=== PATIENT | male | born 1990 | race African-American/Black ===

== ENCOUNTER 2019-11-14 09:56 | Emergency (ER) | payer SELFPAY ==
[~2019-11-14] VITALS: Ht 182.9 cm; Wt 72.6 kg
[2019-11-14] MEDS ORDERED: MAG HYDROX/AL HYDROX/SIMETH 30 ML UDC ONE (10:13)
[2019-11-14] MEDS ORDERED: LIDOCAINE VISCOUS 2% UD 15 ML UDC ONE (10:13)
[2019-11-14] MEDS ORDERED: FAMOTIDINE (20 MG) 20 MG TABLET ONE (10:14)
[2019-11-14] MEDS: LIDOCAINE VISCOUS 2% UD 15 ML UDC MM ONE (10:20)
[2019-11-14] MEDS: MAG HYDROX/AL HYDROX/SIMETH 30 ML UDC PO ONE (10:20)
[2019-11-14] MEDS: FAMOTIDINE (20 MG) 20 MG TABLET PO ONE (10:20)
--- NOTE | 2019-11-14 10:21 | NUR ---
BIBS FROM HOME TO ER BED 4. AAOX4. NOT IN RESP DISTRESS. AMBULATORY. CAME IN FOR ABDOMINAL PAIN ON THE EPIGASTRIC AREA WHICH IS INTERMITENT IN NATURE. PT REPORTS THAT ITS HAS BEEN GOING ON FOR THE PAST 2 MONTH W/ ASSOCIATED INTERMITENT DIARRHEA. PT DESCRIBE THE SENSATION OF THE PAIN BURNING AND AGGREVATED BY SPICY AND ACIDIC FOOD. MD WAS AT THE BEDSIDE FOR EVAL. ORDERS RECEIVED NOTED AND CARRIED OUT. PT WAS MEDICATED ORDERED
[2019-11-14 10:55] LABS: BASOPHILS % (AUTO) 0.9 % (0.0-2.0); EOSINOPHILS % (AUTO) 0.7 % (0.0-6.0); HEMATOCRIT 43 % (39-51); HEMOGLOBIN 14.3 g/dL (13.5-17.5); LYMPHOCYTES # (AUTO) 1.2 /CMM (0.8-4.8); LYMPHOCYTES % (AUTO) 36.3 % (20.0-44.0); MEAN CORPUSCULAR HGB CONC 33 g/dl (31.0-36.0); MEAN CORPUSCULAR VOLUME 88 fL (80-96); MONOCYTES # (AUTO) 0.3 /CMM (0.1-1.30); MONOCYTES % (AUTO) 8.6 % (2.0-12.0); NEUTROPHILS # (AUTO) 1.7 /CMM (1.8-8.9); NEUTROPHILS % (AUTO) 53.5 % (43.0-81.0); PLATELET COUNT (AUTO) 124 /CMM (150-450); RED BLOOD CELL COUNT(AUTO) 4.94 MIL/uL (4.5-6.0); WHITE BLOOD COUNT (AUTO) 3.2 K/uL (4.3-11.0)
--- NOTE | 2019-11-14 11:01 | NUR ---
FOLOWED UP WITH LAB REGARDING LAB RESULTS
[2019-11-14 11:04] LABS: BILIRUBIN,DIRECT 0.1 mg/dL (0.0-0.2); BILIRUBIN,TOTAL 0.6 mg/dL (0.2-1.0); CALCIUM, SERUM 9.8 mg/dL (8.5-10.1); CREATININE 0.9 mg/dL (0.6-1.3); POTASSIUM 3.7 mmol/L (3.5-5.1); TOTAL PROTEIN, SERUM 8.6 g/dL (6.4-8.2)
[2019-11-14 11:08] LABS: APPEARANCE,URINE CLEAR (CLEAR); BILIRUBIN,URINE NEGATIVE (NEGATIVE); BLOOD, URINE NEGATIVE Ery/uL (NEGATIVE); COLOR,URINE YELLOW (YELLOW); KETONES,URINE NEGATIVE (NEGATIVE); LEUKOCYTE ESTERASE ,URINE NEGATIVE (NEGATIVE); NITRITE, URINE NEGATIVE (NEGATIVE); PROTEIN,URINE NEGATIVE (NEGATIVE); UGLUCOSE NEGATIVE (NEGATIVE); UROBILINOGEN,URINE 0.2 EU/dL (0.2)
--- NOTE | 2019-11-14 11:26 | NUR ---
Patient discharged to home in stable condition. Written and verbal after care instructions given. Patient verbalizes understanding of instruction. Pt ambulatory with a steady gait
[2019-11-14 11:28] VITALS: BP 112/68
== END 2019-11-14 11:29 | disposition home or self-care (01) ==
LOC: ER 10:03
DX: R10.13 Epigastric pain (principal); R51 Headache; K21.9 Gastro-esophageal reflux disease without esophagitis; Z60.2 Problems related to living alone
CPT/HCPCS: 36415; 80048-TC; 80076-TC; 81000-TC; 83690-TC; 85025-TC